=== PATIENT | male | born 1960 | race Two or more races ===

== ENCOUNTER 2020-10-09 04:25 | Day surgery (SDC) | payer OTHER ==
[2020-09-29 13:31] VITALS: BMI 31.6
[2020-10-09] MEDS ORDERED: LIDOCAINE HCL/PF 1% SDV 5ML VIAL ONE (07:26)
[2020-10-09 10:15] VITALS: BP 109/71; PULSE 80; TEMP 97.9
== END 2020-10-09 10:05 | disposition home or self-care (01) ==
LOC: JASU-SURG 04:25
PROVIDERS: ATTEND Pain Medicine Pain Medicine
PROC: BR16YZZ Fluoroscopy of Lumbar Facet Joint(s) using Other Contrast (ICD-10-PCS; 2020-10-09)
PROC: 3E0T3BZ Introduction of Anesthetic Agent into Peripheral Nerves and Plexi, Percutaneous Approach (ICD-10-PCS; principal; 2020-10-09 09:31)
DX: M47.816 Spondylosis without myelopathy or radiculopathy, lumbar region (principal)
CPT/HCPCS: 76000-TC-FY

== ENCOUNTER 2022-06-28 04:10 | Day surgery (SDC) | payer OTHER ==
[2022-06-22 15:48] VITALS: BMI 33.6
[~2022-06-28 04:10] MED LIST: BUPIVACAINE HCL/PF 0.75% 10 ML VIAL PNB ONE; LIDOCAINE 1% P/F 10 MG/ML VIAL PNB ONE
[2022-06-28] MEDS ORDERED: LIDOCAINE HCL/PF 1% SDV 5ML VIAL ONE ×2 (07:14→07:15)
[2022-06-28] MEDS ORDERED: BUPIVACAINE HCL/PF 0.75% 10 ML VIAL ONE (07:14)
[2022-06-28] MEDS ORDERED: BUPIVACAINE HCL/PF 0.75% 10 ML VIAL PNB ONE (08:38)
[2022-06-28] MEDS ORDERED: LIDOCAINE 1% P/F 10 MG/ML VIAL PNB ONE (08:38)
[2022-06-28 09:09] VITALS: RESP 18
[2022-06-28 09:16] VITALS: BP 133/75; PULSE 77; TEMP 98
== END 2022-06-28 09:10 | disposition home or self-care (01) ==
LOC: JASU-SURG 04:10
PROVIDERS: ATTEND Pain Medicine Pain Medicine
PROC: BR16YZZ Fluoroscopy of Lumbar Facet Joint(s) using Other Contrast (ICD-10-PCS; 2022-06-28)
PROC: 3E0T3BZ Introduction of Anesthetic Agent into Peripheral Nerves and Plexi, Percutaneous Approach (ICD-10-PCS; principal; 2022-06-28 08:00)
DX: M47.816 Spondylosis without myelopathy or radiculopathy, lumbar region (principal)
CPT/HCPCS: 76000-TC-FY